=== PATIENT | male | born 1965 | race Caucasian/White ===

== ENCOUNTER 2019-04-06 13:51 | Inpatient (IN) ==
[2019-04-06] MEDS ORDERED: SALINE LOCK IV FLUID XX ONE (14:55)
[2019-04-06] MEDS: DUONEB (A & A) INH SCH ×3 (15:15→22:49)
[2019-04-06] MEDS ORDERED: APRESOLINE IV ONE (15:24)
[2019-04-06 15:40] LABS: BE 1.7 mmoll (-3.0-3.0); BLOOD TYPE ARTERIAL; METHB 1.5 % (0.0-1.5); O2(CT) 20.3 mL/dL (15.0-23.0); PCO2(98.6) 50 mmHg (35-45); PO2(98.6) 60 mmHg (60-100); SAMPLE BLOOD; THB 16.3 g/dL (11.5-17.4); pH(98.6) 7.36 (7.35-7.45)
[2019-04-06 15:41] LABS: MODALITY ROOM AIR; O2HB 88.9 % (95.0-99.0)
[2019-04-06 15:42] LABS: ALLEN TEST YES
[2019-04-06] MEDS: NICODERM PATCH TD SCH (15:56)
[2019-04-06] MEDS: NORCO-10 PO PRN ×2 (15:56→21:16)
--- NOTE | 2019-04-06 15:57 | Diag Imaging Result Doc PS360 ---
EXAM: CHEST-PORTABLE INDICATION: SOB TECHNIQUE: One view COMPARISON: 07/08/2015 FINDINGS: The lungs are grossly clear. There is no discrete pleural fluid collection or pneumothorax. The cardiomediastinal silhouette and central vasculature are grossly unremarkable. IMPRESSION: No evidence of acute pathology by plain radiograph. Electronically signed by Tuan Gomes 04/06/2019 3:55 PM
[2019-04-06 16:40] LABS: AGAP 11; CHLORIDE 100 mmol/L (98-107); GLUCOSE 219 mg/dL (70-104); POTASSIUM 4.3 mmol/L (3.5-5.1); SODIUM 136 mmol/L (136-145); TCO2 25 mmol/L (25-35)
[2019-04-06 16:41] LABS: ALBUMIN 3.7 g/dL (3.5-5.0); BUN 14 mg/dL (8-22); CALCIUM 8.9 mg/dL (8.8-10.2); COSMO 279; CREATININE 0.7 mg/dL (0.7-1.2); TOTAL PROTEIN 6.9 g/dL (6.3-8.3)
[2019-04-06 16:42] LABS: ALKALINE PHOSPHATASE 111 U/L (32-122)
[2019-04-06 16:44] LABS: GOT 24 U/L (10-34); GPT 33 U/L (10-44)
--- NOTE | 2019-04-06 16:58 | EKG Report ---
Test Performed on : 04/06/2019 3:23:58 PM Test Reason : SOB Blood Pressure : / mmHG Vent. Rate : 104 BPM Atrial Rate : 104 BPM P-R Int : 162 ms QRS Dur : 082 ms QT Int : 336 ms P-R-T Axes : 053 066 066 degrees QTc Int : 441 ms Sinus tachycardia. Otherwise normal ECG When compared with ECG of 08-JUL-2015 19:52, Vent. rate has increased BY 40 BPM Nonspecific T wave abnormality now evident in Anterior leads Confirmed by Tai Durant MD ([id number]) on 04/12/2019 9:33:56 PM
[2019-04-06 16:59] LABS: HEMATOCRIT 46.3 % (42.0-52.0); HEMOGLOBIN 14.9 g/dL (14.0-18.0); RBC 5.02 XMIL (4.7-6.1)
[2019-04-06 17:00] LABS: BASO# 0.05 X1000 (0.0-0.2); BASO% 0.3 % (0.0-0.8); EOS# 0.58 X1000 (0.0-0.7); EOS% 3.8 % (0.0-10.0); LYMPH# 2.75 X1000 (1.2-3.4); MCH 29.7 PG (27-31); MCHC 32.2 g/dL (33-37); MCV 92.2 FL (81-99); MONO# 0.95 X1000 (0.11-0.59); MONO% 6.2 % (1.7-9.3); MPV 10.9 FL (7.4-10.4); NEUT# 10.92 X1000 (1.4-6.5); NEUT% 71.4 % (42.2-75.2); PLT 344 X1000 (130-400); RDW 13.5 % (11.5-14.5)
[2019-04-06] MEDS ORDERED: VOLTAREN PO SCH (17:00)
[2019-04-06] MEDS ORDERED: ROBAXIN PO SCH (17:00)
[2019-04-06] MEDS ORDERED: ZOFRAN IV PRN (18:13)
[2019-04-06] MEDS ORDERED: TYLENOL PO PRN (18:13)
[2019-04-06] MEDS ORDERED: DUONEB (A & A) INH PRN (18:13)
[2019-04-06] MEDS ORDERED: SOLU-MEDROL IV SCH (18:15)
[2019-04-06] MEDS: ROBAXIN PO SCH (18:52)
[2019-04-06] MEDS: ROCEPHIN 1 GM in NS 50 ML IV SCH (18:52)
[2019-04-06] MEDS: SOLU-MEDROL IV SCH (18:52)
[2019-04-06] MEDS: VOLTAREN PO SCH (18:53)
[2019-04-06] MEDS: HUMALOG (PARKWAY) SUBQ SCH (21:15)
[2019-04-06] MEDS: COREG PO SCH (21:17)
[2019-04-06] MEDS: DESYREL PO SCH (21:19)
[2019-04-07] MEDS: ROBAXIN PO SCH ×4 (02:11→17:57)
[2019-04-07] MEDS: VOLTAREN PO SCH ×4 (02:11→21:15)
[2019-04-07] MEDS: SOLU-MEDROL IV SCH ×3 (02:12→17:57)
[2019-04-07] MEDS: DUONEB (A & A) INH SCH ×6 (02:59→23:36)
[2019-04-07] MEDS: HUMALOG (PARKWAY) SUBQ SCH ×4 (06:23→21:16)
[2019-04-07] MEDS ORDERED: VOLTAREN PO SCH (09:00)
[2019-04-07] MEDS ORDERED: PRINIVIL PO SCH (09:00)
[2019-04-07] MEDS ORDERED: CLARITIN PO SCH (09:00)
[2019-04-07] MEDS: PEPCID PO SCH (10:39)
[2019-04-07] MEDS: CLARITIN PO SCH (10:40)
[2019-04-07] MEDS: NORCO-10 PO SCH ×3 (10:40→17:57)
[2019-04-07] MEDS: LOVENOX SUBQ SCH (10:40)
[2019-04-07] MEDS: NICODERM PATCH TD SCH (10:41)
[2019-04-07] MEDS: GLUCOPHAGE PO SCH ×2 (10:41→17:56)
[2019-04-07] MEDS: CYMBALTA PO SCH (10:41)
[2019-04-07] MEDS: COREG PO SCH ×2 (10:41→21:15)
--- NOTE | 2019-04-07 11:16 | Vascular Study Report ---
Venous U/S Bilateral Legs - 04/07/2019 INDICATION: elevated d dimer TECHNIQUE: COMPARISON: None FINDINGS: The veins of the lower extremities are fully compressible. There is normal color and pulse wave Doppler signal. IMPRESSION: Negative exam. Electronically signed by Zeke Kaplan 04/07/2019 11:13 AM
--- NOTE | 2019-04-07 15:03 | PROGRESS NOTE ---
DATE: 04/07/2019 SUBJECTIVE: Patient notes that he is still short of breath. Still coughing. Wheezing is improved. Still having difficulty getting out of bed on his own. PHYSICAL EXAMINATION: Vital Signs: Reviewed. He is afebrile. Blood pressure stable, O2 saturation stable on 2 L. General: Patient is a morbidly obese male who is in mild respiratory distress. HEENT: Normocephalic. Neck: Supple. Cardiovascular: Regular rate. Chest: Clear although distant breath sounds. Abdomen: Soft, obese. Extremities: Moves all extremities. Neurologic: No focal changes. ASSESSMENT: 1. Leukocytosis. 2. Acute bronchitis with wheezing. 3. Hypertension. 4. Morbid obesity. 5. Adult failure to thrive with generalized weakness. PLAN: We are going to continue patient in the hospital. Continue breathing treatments, oxygen, antibiotics. We will recheck his labs in the a.m. Ultrasound today, due to his elevated D-dimer. We will get physical therapy involved due to his generalized weakness and will follow. cc: Jorge Morrissey MD
[2019-04-07] MEDS: ROCEPHIN 1 GM in NS 50 ML IV SCH (17:57)
--- NOTE | 2019-04-07 21:15 | HISTORY AND PHYSICAL ---
ADDENDUM: PHYSICAL EXAMINATION: HEENT: Normocephalic, atraumatic. ALISA. NECK: Supple. CARDIOVASCULAR: Regular rate. No murmurs. CHEST: Distant, but regular and clear. ABDOMEN: Obese, soft, nondistended. EXTREMITIES: Moves all extremities. ASSESSMENT: 1. Leukocytosis. 2. Acute bronchitis with wheezing. 3. Morbid obesity. 4. Hypothyroidism. 5. Diabetes. PLAN: We are going to admit patient to the hospital, place him on Solu-Medrol, antibiotics for his leukocytosis. Place him on steroids, breathing treatments, oxygen and we will follow blood sugar with pattern Accu-Chek. cc: Jorge Morrissey MD MTDD
[2019-04-07] MEDS: DESYREL PO SCH (21:16)
--- NOTE | 2019-04-07 21:26 | HISTORY AND PHYSICAL ---
CHIEF COMPLAINT: Shortness of breath. HISTORY OF PRESENT ILLNESS: The patient is a morbidly obese 53-year-old male who presented to the office and subsequently to the hospital with increased work of breathing and shortness of breath. Notes he has been wheezing. States he has been unable to care for himself at home secondary to his shortness of breath. He has been sitting around a lot more lately than usual. Has created a significant fatigue. SOCIAL HISTORY: Patient is a . He is on disability. Lives at home in [place]. ALLERGIES: Penicillin and bee venom. MEDICATIONS: Metformin, omega-3 fatty acid, Singulair, ibuprofen p.r.n. REVIEW OF SYSTEMS: As noted above, positive for increased cough and congestion, increased work of breathing and increased shortness of breath. Denies any true chest pains or palpitations. Denies headaches, blurred vision, change in vision. Denies any focalized numbness, tingling, or weakness in extremities. Denies dysuria, frequency, or urgency. PAST MEDICAL HISTORY: Significant for obesity, diabetes, or hypothyroidism. FAMILY HISTORY: Noncontributory. PHYSICAL EXAMINATION: VITAL SIGNS: Reviewed. Patient is currently afebrile. Blood pressure stable. INCOMPLETE REPORT -- DICTATION ENDS HERE cc: Jorge Morrissey MD
[2019-04-08] MEDS: SOLU-MEDROL IV SCH ×2 (01:54→13:54)
[2019-04-08] MEDS: DUONEB (A & A) INH SCH ×6 (04:05→22:49)
[2019-04-08] MEDS: HUMALOG (PARKWAY) SUBQ SCH ×4 (06:51→21:33)
[2019-04-08] MEDS: PRINIVIL PO SCH (10:32)
[2019-04-08] MEDS: CYMBALTA PO SCH (10:32)
[2019-04-08] MEDS: NICODERM PATCH TD SCH (10:32)
[2019-04-08] MEDS: CLARITIN PO SCH (10:32)
[2019-04-08] MEDS: COREG PO SCH ×2 (10:32→21:33)
[2019-04-08] MEDS: LOVENOX SUBQ SCH (10:32)
[2019-04-08] MEDS: GLUCOPHAGE PO SCH ×2 (10:32→16:44)
[2019-04-08] MEDS: PEPCID PO SCH (10:33)
[2019-04-08] MEDS: ROBAXIN PO SCH ×3 (10:33→16:45)
[2019-04-08] MEDS: NORCO-10 PO SCH ×3 (10:33→16:45)
[2019-04-08] MEDS: VOLTAREN PO SCH ×3 (10:33→21:33)
[2019-04-08] MEDS: ROCEPHIN 1 GM in NS 50 ML IV SCH (17:47)
[2019-04-08] MEDS: DESYREL PO SCH (21:33)
--- NOTE | 2019-04-08 22:12 | PROGRESS NOTE ---
DATE: 04/08/2019 SUBJECTIVE: The patient notes that his shortness of breath is improving but still present. Denies any fevers or chills. Denies any focalized pain. OBJECTIVE: Vital Signs: Temperature 98.6, pulse 89, respirations 18, BP 168/80. General: The patient is pleasant. He is sitting in the chair. He unfortunately requires assistance to get out of the chair and back to bed. HEENT: Normocephalic, atraumatic. Neck: Supple. CV: Regular rate, no murmurs. Chest: Clear although distant. Abdomen: Soft, morbidly obese. Extremities: Moves all extremities, although has generalized weakness. ASSESSMENT: 1. Generalized weakness with adult failure to thrive. 2. Acute bronchitis with wheezing, improved. 3. Diabetes. 4. Hypothyroidism. 5. Hypertension. PLAN: We are going to continue the patient in the hospital and continue to wean Solu-Medrol. Continue breathing treatments, antibiotics and oxygen. Will get physical therapy involved and attempt to assist with ambulation, and will follow. cc: Jorge Morrissey MD
[2019-04-09] MEDS: DUONEB (A & A) INH SCH ×6 (02:58→22:32)
[2019-04-09] MEDS: HUMALOG (PARKWAY) SUBQ SCH ×4 (06:43→21:49)
[2019-04-09] MEDS: PRINIVIL PO SCH (08:40)
[2019-04-09] MEDS: CYMBALTA PO SCH (08:40)
[2019-04-09] MEDS: NORCO-10 PO SCH ×3 (08:40→16:30)
[2019-04-09] MEDS: ROBAXIN PO SCH ×3 (08:40→16:30)
[2019-04-09] MEDS: LOVENOX SUBQ SCH (08:40)
[2019-04-09] MEDS: CLARITIN PO SCH (08:40)
[2019-04-09] MEDS: VOLTAREN PO SCH ×3 (08:41→21:00)
[2019-04-09] MEDS: GLUCOPHAGE PO SCH ×2 (08:41→16:30)
[2019-04-09] MEDS: COREG PO SCH ×2 (08:41→21:00)
[2019-04-09] MEDS: PEPCID PO SCH (08:41)
[2019-04-09] MEDS: NICODERM PATCH TD SCH (08:41)
[2019-04-09] MEDS: SOLU-MEDROL IV SCH (08:48)
[2019-04-09] MEDS: PREDNISONE PO SCH (11:09)
[2019-04-09] MEDS: MOBIC PO SCH (11:09)
[2019-04-09] MEDS: OMNICEF PO SCH ×2 (11:09→21:00)
--- NOTE | 2019-04-09 18:29 | PROGRESS NOTE ---
DATE: 04/09/2019 SUBJECTIVE: Patient notes that he is feeling better from a breathing standpoint. No more cough and no shortness of breath. Slept better last night. Notes that he is still tired and having difficulty ambulating without assistance and having difficulty getting into and out of the chair without assistance . PHYSICAL: Vital Signs: Reviewed. Temperature 98 degrees, pulse 89, respiratory 18, BP 158/80. General: Patient is a morbidly obese male who is currently in no respiratory distress. HEENT: Normocephalic. Neck: Supple. Cardiovascular: Regular rate. No murmurs. Chest: Clear. Abdomen: Soft, obese. Extremities: Moves all extremities. ASSESSMENT: 1. Leukocytosis improved. 2. Acute bronchitis, wheezing improved. 3. Morbid obesity. 4. Hypothyroidism. 5. Diabetes. PLAN: We are going continue patient in the hospital, his IV came out so will change him to p.o. prednisone as well as p.o. antibiotics. Continue physical therapy. Expect he will need rehab on discharge. cc: Jorge Morrissey MD MTDD
[2019-04-09] MEDS: DESYREL PO SCH (21:00)
[2019-04-10] MEDS: DUONEB (A & A) INH SCH ×6 (02:58→22:41)
[2019-04-10] MEDS: HUMALOG (PARKWAY) SUBQ SCH ×4 (06:08→21:40)
[2019-04-10] MEDS: LOVENOX SUBQ SCH (08:12)
[2019-04-10] MEDS: COREG PO SCH ×2 (08:13→20:39)
[2019-04-10] MEDS: MOBIC PO SCH (08:13)
[2019-04-10] MEDS: CYMBALTA PO SCH (08:13)
[2019-04-10] MEDS: ROBAXIN PO SCH ×4 (08:13→16:32)
[2019-04-10] MEDS: PEPCID PO SCH (08:13)
[2019-04-10] MEDS: NORCO-10 PO SCH ×3 (08:13→16:32)
[2019-04-10] MEDS: NICODERM PATCH TD SCH (08:14)
[2019-04-10] MEDS: GLUCOPHAGE PO SCH ×2 (08:14→16:32)
[2019-04-10] MEDS: VOLTAREN PO SCH ×3 (08:14→20:40)
[2019-04-10] MEDS: PRINIVIL PO SCH (08:14)
[2019-04-10] MEDS: OMNICEF PO SCH ×2 (08:14→20:40)
[2019-04-10] MEDS: PREDNISONE PO SCH (08:14)
[2019-04-10] MEDS: CLARITIN PO SCH (08:19)
[2019-04-10] MEDS: DESYREL PO SCH (20:40)
[2019-04-11] MEDS: DUONEB (A & A) INH SCH ×6 (02:43→22:42)
[2019-04-11] MEDS: HUMALOG (PARKWAY) SUBQ SCH ×4 (06:02→21:11)
--- NOTE | 2019-04-11 07:29 | PROGRESS NOTE ---
DATE: 04/10/2019 SUBJECTIVE: Patient notes that from breathing standpoint, he feels tremendously better. He is breathing easier. Cough has improved. No fevers or chills. No chest pain. However, he is still very weak and having difficulty to ambulate the room on his own. PHYSICAL EXAMINATION: Vital Signs: Reviewed. Temperature 97.4 degrees, pulse 91, respiratory rate 18, blood pressure 137/79. General: Patient is in no respiratory distress. He is sitting in the chair. HEENT: Normocephalic. Neck: Supple. Cardiovascular: Regular rate. Chest: Clear. Abdomen: Soft. Extremities: Moves all extremities. ASSESSMENT: 1. Acute bronchitis with wheezing, improved. 2. Morbid obesity. 3. Hypertension. 4. Hypothyroidism. 5. Diabetes. 6. Adult failure to thrive and generalized weakness. PLAN: We are going to continue the patient in the hospital through the weekend, hopefully to rehab on Friday. We changed him over to oral steroids and antibiotics and he continues to do well. cc: Jorge Morrissey MD
--- NOTE | 2019-04-11 08:20 | PROGRESS NOTE ---
DATE: 04/11/2019 SUBJECTIVE: The patient notes that he is feeling a lot better. Denies any fevers, chills. States overall his symptoms have improved from a respiratory standpoint. PHYSICAL EXAMINATION: Vital Signs: Reviewed. Temperature 98 degrees, pulse 87, respiratory rate 18, blood pressure 133/74. General: Patient is awake. He is in no respiratory distress. He is sitting in the chair. HEENT: Normocephalic. Neck: Supple. Cardiovascular: Regular rate. No murmurs. Chest: Clear. Abdomen: Soft. Extremities: Moves all extremities. Neurologic: No changes. ASSESSMENT: 1. Leukocytosis, resolved. 2. Acute bronchitis with wheezing, resolved. 3. Morbid obesity. 4. Hypothyroidism. 5. Diabetes. 6. Adult failure to thrive with generalized weakness. PLAN: We are going to continue the patient in the hospital. We have changed him over to oral steroids and oral antibiotics. Will continue to wean as tolerated. He is on breathing treatments and oxygen. We will continue physical therapy. Hopefully he can transition to rehab over the next 1 or 2 days when bed is available. cc: Jorge Morrissey MD
[2019-04-11] MEDS: NICODERM PATCH TD SCH (08:26)
[2019-04-11] MEDS: CLARITIN PO SCH (08:27)
[2019-04-11] MEDS: PREDNISONE PO SCH (08:27)
[2019-04-11] MEDS: VOLTAREN PO SCH ×3 (08:27→21:11)
[2019-04-11] MEDS: NORCO-10 PO SCH ×3 (08:27→21:16)
[2019-04-11] MEDS: COREG PO SCH ×2 (08:27→21:11)
[2019-04-11] MEDS: GLUCOPHAGE PO SCH ×2 (08:27→16:59)
[2019-04-11] MEDS: PRINIVIL PO SCH (08:27)
[2019-04-11] MEDS: CYMBALTA PO SCH (08:28)
[2019-04-11] MEDS: PEPCID PO SCH (08:28)
[2019-04-11] MEDS: OMNICEF PO SCH ×2 (08:28→21:11)
[2019-04-11] MEDS: ROBAXIN PO SCH ×3 (08:28→16:59)
[2019-04-11] MEDS: LOVENOX SUBQ SCH (11:10)
[2019-04-11] MEDS: DESYREL PO SCH (21:11)
[2019-04-12] MEDS: DUONEB (A & A) INH SCH ×4 (02:29→15:12)
[2019-04-12 05:40] VITALS: BP 133/73
[2019-04-12] MEDS: HUMALOG (PARKWAY) SUBQ SCH ×2 (06:21→13:42)
[2019-04-12] MEDS: NICODERM PATCH TD SCH (09:00)
[2019-04-12] MEDS: GLUCOPHAGE PO SCH (09:01)
[2019-04-12] MEDS: ROBAXIN PO SCH (09:01)
[2019-04-12] MEDS: COREG PO SCH (09:01)
[2019-04-12] MEDS: PEPCID PO SCH (09:01)
[2019-04-12] MEDS: VOLTAREN PO SCH (09:01)
[2019-04-12] MEDS: CLARITIN PO SCH (09:01)
[2019-04-12] MEDS: LOVENOX SUBQ SCH (09:01)
[2019-04-12] MEDS: OMNICEF PO SCH (09:02)
[2019-04-12] MEDS: NORCO-10 PO SCH ×2 (09:02→13:41)
[2019-04-12] MEDS: PRINIVIL PO SCH (09:02)
[2019-04-12] MEDS: PREDNISONE PO SCH (09:02)
[2019-04-12] MEDS: CYMBALTA PO SCH (09:02)
--- NOTE | 2019-04-12 10:49 | DISCHARGE SUMMARY ---
ADMISSION DATE: 04/06/2019 DISCHARGE DATE: 04/12/2019 DISCHARGE DIAGNOSES: 1. Nausea and vomiting, resolved. 2. Shortness of breath. 3. Bronchitis with wheezing. 4. Morbid obesity. 5. Adult failure to thrive with frequent falls. 6. Arthritis. 7. Diabetes. CONSULTATIONS: None. PROCEDURES: None. BRIEF HOSPITAL COURSE: The patient is a 53-year-old, morbidly obese male, who presented to the hospital secondary to increased work of breathing, shortness of breath, dyspnea on exertion. He was unable to care for himself at home, had frequent falls. Noted that he had been sitting in the same chair for several days prior to admission, has not been able to bathe for over a week. He was admitted to the hospital and noted to have bronchitis with wheezing, was placed on steroids, breathing treatments, antibiotics. Thankfully, on discharge, the patient is awake, alert. He is in no distress. He has been changed over to oral antibiotics as well as oral steroids. DISPOSITION: The patient will continue 5 more days of antibiotics. He is currently on prednisone 20 mg for the next 3 days, and then will need to decrease this to 10 mg for 3 days, and then stop. He will continue his other medications as listed on his chart to include metformin, omega 3 fatty acid, Singulair, and Voltaren gel. He will continue physical therapy. Further orders as needed. He will follow up outpatient with his primary care. cc: Jorge Morrissey MD
== END 2019-04-12 15:30 | DRG 202 ==
LOC: P.DIRADM 13:51 → P.MEDSURG 14:18
PROVIDERS: ADMIT Family Medicine; ATTEND Family Medicine